=== PATIENT | female | born 1975 | race American Indian/Alaskan Native ===

== ENCOUNTER 2019-08-19 18:48 | Emergency (ER) | payer MEDICARE ==
--- NOTE | 2019-08-19 19:13 | Event Note ---
ED Screening Note Date of service: 08/19/19 Time: 19:08 ED Screening Note: 43 y/o female comes in for sob, chest tightness and elevated blood sugar times couple of weeks but today has been constant. Has been having a cough. This initial assessment/diagnostic orders/clinical plan/treatment(s) is/are subject to change based on patients health status, clinical progression and re- assessment by fellow clinical providers in the ED. Further treatment and workup at subsequent clinical providers discretion. Patient/guardian urged not to elope from the ED as their condition may be serious if not clinically assessed and managed. Initial orders include:
--- NOTE | 2019-08-19 19:40 | XRay Report ---
CHEST 2 VIEWS INDICATION / CLINICAL INFORMATION: Chest Pain. COMPARISON: None available. FINDINGS: SUPPORT DEVICES: None. HEART / MEDIASTINUM: No significant abnormality. Heart size within normal limits. LUNGS / PLEURA: Diffuse, hazy and reticular opacity is present with symmetric distribution in both chris ngs. No parenchymal consolidation or pleural fluid. No pneumothorax. ADDITIONAL FINDINGS: No significant additional findings. IMPRESSION: 1. Appearance is suggestive of mild interstitial pulmonary edema. No consolidation or pleural fluid. Signer Name: Jayson Claudio MD Signed: 08/19/2019 7:36 PM Workstation Name: [id number]
[2019-08-19 20:37] LABS: INR 0.95 (0.87-1.13); Partial Thromboplastin Time 26.4 Sec. (24.2-36.6)
[2019-08-19 20:39] LABS: BUN/Creatinine Ratio 15; Blood Urea Nitrogen 19 mg/dL (7-17); Calcium 8.6 mg/dL (8.4-10.2); Hemolysis Index 6
--- NOTE | 2019-08-20 01:01 | Emergency Department Report ---
ED Chest Pain HPI - General Chief Complaint: Chest Pain Stated Complaint: SOB/CHEST TIGHTNESS Time Seen by Provider: 08/19/19 19:08 Source: patient Mode of arrival: Ambulatory Limitations: No Limitations - History of Present Illness Initial Comments: 43-year-old female presents to the emergency department with complaint of some midsternal chest pain and shortness of breath. She also complains of a mixed dry and productive cough. The chest pain will radiate to the neck and right side. The symptoms are intermittent and currently, at the time of my examination, the patient is asymptomatic. She has not taken anything for her symptoms prior to presentation. No recent travel or sick contacts at home. She has a past medical history of COPD, insulin-dependent diabetes, chronic kidney disease and lupus. Her primary care physician is Dr. Bonnie Carbone. 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 Denies any tobacco or illicit drug use. - Related Data Allergies Allergy/AdvReac Type Severity Reaction Status Date / Time No Known Allergies Allergy Unverified 08/19/19 18:49 Heart Score - HEART Score History: Slightly suspicious EKG: Normal Age: 45-65 Risk factors: 1-2 risk factors Troponin: < normal limit HEART Score: 2 - Critical Actions Critical Actions: 0-3 pts:0.9-1.7%risk of adverse cardiac event.Candidate for discharge ED Review of Systems ROS: Stated complaint: SOB/CHEST TIGHTNESS Other details as noted in HPI Comment: All other systems reviewed and negative Constitutional: denies: chills, fever Eyes: denies: eye pain, vision change ENT: denies: ear pain, throat pain Respiratory: cough, shortness of breath Cardiovascular: chest pain. denies: edema Gastrointestinal: denies: abdominal pain, vomiting Genitourinary: denies: dysuria, discharge Musculoskeletal: denies: back pain, arthralgia Skin: denies: rash, lesions Neurological: denies: headache, weakness ED Past Medical Hx - Past Medical History Hx Diabetes: Yes Hx Renal Disease: Yes (STAGE 2) Hx COPD: Yes Additional medical history: LUPUS/ CIRRHOSIS - Surgical History Past Surgical History?: No Hx Cholecystectomy: Yes - Social History Smoking Status: Never Smoker Substance Use Type: None ED Physical Exam - General Limitations: No Limitations - Other Other exam information: GENERAL: The patient is well-developed well-nourished. HENT: Normocephalic. Atraumatic. Patient has moist mucous membranes. EYES: Extraocular motions are intact. NECK: Supple. Trachea is midline. CHEST/LUNGS: Clear to auscultation. There is no respiratory distress noted. HEART/CARDIOVASCULAR: Regular. There is no tachycardia. There is no murmur. ABDOMEN: Abdomen is soft, nontender. Patient has normal bowel sounds. Morbidly obese habitus. SKIN: Skin is warm and dry. NEURO: The patient is awake, alert, and oriented. The patient is cooperative. The patient has no focal neurologic deficits. Normal speech. MUSCULOSKELETAL: There is no tenderness or deformity. There is no evidence of acute injury. ED Course Vital Signs 08/20/19 08/20/19 08/20/19 01:14 01:30 02:00 Temperature 98.7 F Pulse Rate 102 H 93 H 96 H Respiratory 22 26 H 26 H Rate Blood Pressure 164/103 170/98 Blood Pressure 181/108 [Left] O2 Sat by Pulse 97 96 95 Oximetry 08/20/19 02:15 Temperature Pulse Rate 89 Respiratory 22 Rate Blood Pressure Blood Pressure [Left] O2 Sat by Pulse Oximetry NUHA score - Nuha Score Age > 65: (0) No Aspirin use within the Past 7 Days: (0) No 3 or more CAD Risk Factors: (0) No 2 or more Angina events in past 24 hrs: (1) Yes Known CAD with more than 50% Stenosis: (0) No Elevated Cardiac Markers: (0) No ST Deviation Greater than 0.5mm: (0) No NUHA Score: 1 ED Medical Decision Making - Lab Data Result diagrams: 08/20/19 01:02 08/19/19 20:10 - EKG Data -: EKG Interpreted by Nc EKG shows normal: sinus rhythm, axis, intervals, QRS complexes (q waves to the anterior leads), ST-T waves Rate: tachycardia (112 bpm) - EKG Data When compared to previous EKG there are: previous EKG unavailable Interpretation: other (q waves to the anterior leads. No STEMI) - Radiology Data Radiology results: image reviewed interpreted by me: Chest x-ray does not show any acute process. There are no pleural effusions, obvious pneumonia and there is no pneumothorax. - Medical Decision Making This patient presents to the emergency department with a complaint of some intermittent chest pain and shortness of breath. However at the time of my examination the patient is asymptomatic. Heart and lung sounds are normal auscultation. She has morbidly obese habitus. An EKG shows some Q waves to the anterior leads but otherwise no ST elevation MA or dysrhythmia. Chest x-ray does not show any acute process. The patient's labs have been unremarkable including CBC, metabolic panel and troponin 2. Patient is low on the heart and NUHA score. She has a low well score and does not have any significant risk factors for thromboembolic disease. Her vital signs are stable throughout her ED course with some hypertension. The patient appears safe for discharge home at this time. Her contact information has been sent over to separate heart cardiology for close outpatient follow-up. However she has also been instructed to return to the emergency department immediately with any return of her chest pain or shortness of breath, or with any acute distress. Wells' Criteria for Pulmonary Embolism RESULT SUMMARY: 1.5 points Low risk group: 1.3% chance of PE in an ED population. Another study assigned scores ? 4 as PE Unlikely and had a 3% incidence of PE. INPUTS: Clinical signs and symptoms of DVT > 0 = No PE is #1 diagnosis OR equally likely > 0 = No Heart rate > 100 > 1.5 = Yes Immobilization at least 3 days OR surgery in the previous 4 weeks > 0 = No Previous, objectively diagnosed PE or DVT > 0 = No Hemoptysis > 0 = No Malignancy w/ treatment within 6 months or palliative > 0 = No - Differential Diagnosis MA, CHF, Pneumonia, Bronchitis Critical Care Time: No Critical care attestation.: If time is entered above; I have spent that time in minutes in the direct care of this critically ill patient, excluding procedure time. ED Disposition Clinical Impression: Intermittent chest pain, Shortness of breath, Hyperglycemia Hypertension Qualifiers: Hypertension type: essential hypertension Qualified Code(s): I10 - Essential (primary) hypertension CKD (chronic kidney disease) Qualifiers: Chronic kidney disease stage: unspecified stage Qualified Code(s): N18.9 - Chronic kidney disease, unspecified Disposition: DC-01 TO HOME OR SELFCARE Is pt being admited?: No Condition: Stable Instructions: Chest Pain (ED), Dyspnea (ED), Hypertension (ED), Diabetic Hyperglycemia (ED) Additional Instructions: Please go home and take your insulin and any blood pressure medication that you take at night. Follow-up with your primary care physician in the next few days. I am sending your contact information over to a local cardiology group, [facility], and someone should be contacting you shortly for close outpatient follow-up. Please try and stay away from foods that are high in salt and caffeinated products. Keep a blood pressure log. Please try and stay away from foods that are high in sugar, carbohydrates and starches. Keep a blood sugar log. Return to the emergency department immediately with any return of your chest pain, shortness of breath, worsening of your symptoms, or with any acute distress. Referrals: BONNIE CARBONE [Other] - 2-3 Days [facility] [Provider Group] - 2-3 Days Time of Disposition: 01:59
[2019-08-20 01:17] LABS: Basophils % (Auto) 0.4 % (0.0-1.8); Eosinophils # (Auto) 0.3 K/mm3 (0.0-0.4); Eosinophils % (Auto) 5.1 % (0.0-4.3); Hematocrit 32.3 % (30.3-42.9); Hemoglobin 10.3 gm/dl (10.1-14.3); Lymphocytes # (Auto) 1.2 K/mm3 (1.2-5.4); Lymphocytes % (Auto) 18.9 % (13.4-35.0); Mean Corpuscular HGB Conc 32 % (30-34); Mean Corpuscular Volume 81 fl (79-97); Monocytes # (Auto) 0.6 K/mm3 (0.0-0.8); Monocytes % (Auto) 9.6 % (0.0-7.3); Platelet Count 231 K/mm3 (140-440); Red Cell Distribution Width 15.6 % (13.2-15.2)
[2019-08-20 02:28] VITALS: BP 170/98
== END 2019-08-20 02:30 | disposition home or self-care (01) ==
LOC: ED 18:48
DX: R07.89 Other chest pain (principal); R06.02 Shortness of breath; R05 Cough; E11.65 Type 2 diabetes mellitus with hyperglycemia; E11.22 Type 2 diabetes mellitus with diabetic chronic kidney disease; I12.9 Hypertensive chronic kidney disease with stage 1 through stage 4 chronic kidney disease, or unspecified chronic kidney disease; N18.2 Chronic kidney disease, stage 2 (mild); J44.9 Chronic obstructive pulmonary disease, unspecified; Z90.49 Acquired absence of other specified parts of digestive tract; Z98.890 Other specified postprocedural states
CPT/HCPCS: 36415; 71046; 80048; 82962; 83690; 84484; 85025; 85610; 85730; 93005; 93010